=== PATIENT | female | born 1950 | race Caucasian/White ===

== ENCOUNTER 2020-09-21 00:54 | Observation (INO) ==
[2020-09-21] MEDS ORDERED: Isovue-370 500 ML BOTTLE IVP ONE (01:05)
[2020-09-21] MEDS ORDERED: 0.9 % Sodium Chloride 500 ML IVC ONE (01:05)
[2020-09-21] MEDS ORDERED: *HR* FentaNYL (PF) 100 MCG/2 ML VIAL IVP ONE ×2 (01:08→02:36)
[2020-09-21 01:33] LABS: Basophils % 0.4 %; Eosinophils # 0.3 K/mcL (0.0-0.6); Eosinophils % 2.6 %; Hematocrit 34.3 % (35.3-44.9); Hemoglobin 10.9 g/dL (11.5-15.4); Immature Granulocytes % 0.3 % (0-4); Lymphocytes # 1.9 K/mcL (0.6-4.6); Lymphocytes % 19.6 %; Mean Corpuscular HGB Conc 31.8 g/dL (31.6-35.5); Mean Corpuscular Hemoglobin 30.4 pg (28.0-33.3); Mean Corpuscular Volume 95.8 fL (83.0-100.0); Mean Platelet Volume 9.1 fL (9.4-12.4); Monocytes # 0.8 K/mcL (0.0-1.3); Monocytes % 8.2 %; Neutrophils # 6.8 K/mcL (1.6-8.9); Platelet Count 245 K/mcL (140-400); Red Blood Count 3.58 M/mcL (3.82-4.97); Red Cell Distribution Width 13.2 % (11.5-14.5); Segmented Neutrophils % 68.9 %; White Blood Count 9.8 K/mcL (4.3-11.1)
[2020-09-21 01:45] LABS: BUN/Creatinine Ratio 13 (6-26); Blood Urea Nitrogen 12 mg/dL (8-23); Calcium 9.2 mg/dL (8.6-10.3); Carbon Dioxide 28 mEq/L (23-29); Chloride 100 mEq/L (98-107); Glucose 112 mg/dL (70-105); Osmolality,Calculated 283 (280-300); Potassium 3.9 mEq/L (3.5-5.1); Sodium 136 mEq/L (136-145); eGFR For African Americans > 60 (> 60); eGFR For Non-African Americans > 60 (> 60)
[2020-09-21 01:46] LABS: Troponin I < 0.03 ng/mL (< 0.04)
[2020-09-21 02:07] LABS: INR 0.9; Prothrombin Time 10.5 Seconds (9.4-12.1)
[2020-09-21 02:10] LABS: Activated Partial Thrombo Time 30.3 Seconds (26.0-36.0)
[2020-09-21] MEDS ORDERED: Furosemide 40 MG/4 ML VIAL IVP ONE (02:22)
[2020-09-21 04:17] LABS: Adenovirus Not Detected (Not Detect); Bordetella Pertussis Not Detected (Not Detect); Chlamydophila pneumoniae Not Detected (Not Detect); Coronavirus 229E Not Detected (Not Detect); Coronavirus HKU1 Not Detected (Not Detect); Coronavirus NL63 Not Detected (Not Detect); Coronavirus OC43 Not Detected (Not Detect); Human Metapneumovirus Not Detected (Not Detect); Human Rhinovirus/Enterovirus Not Detected (Not Detect); Influenza A Subtype 2009 H1 Not Detected (Not Detect); Influenza B Not Detected (Not Detect); Mycoplasma pneumoniae Not Detected (Not Detect); Parainfluenza Virus 1 Not Detected (Not Detect); Parainfluenza Virus 2 Not Detected (Not Detect); Parainfluenza Virus 3 Not Detected (Not Detect); Parainfluenza Virus 4 Not Detected (Not Detect); Respiratory Syncytial Virus Not Detected (Not Detect); SARS-CoV-2 Not Detected (Not Detect)
[2020-09-21] MEDS ORDERED: Morphine Sulfate Immed Rel 15 MG TABLET PO ONE (04:44)
[2020-09-21] MEDS ORDERED: Naloxone 0.4 MG/ML INJ IVP PRN (05:57)
[2020-09-21] MEDS ORDERED: *HR* Dextrose 50 % in Water (Vial) 50 ML VIAL IVP PRN (06:25)
[2020-09-21] MEDS ORDERED: Morphine Sulfate 2 MG/ML SYRINGE IVP PRN ×2 (06:25→12:43)
[2020-09-21] MEDS ORDERED: D5% in Water 1,000 ML IVC PRN (06:25)
[2020-09-21] MEDS ORDERED: Dextrose Gel 15 GM/37.5 ML TUBE PO PRN ×2 (06:25)
[2020-09-21] MEDS: lisinopriL 20 MG TABLET PO SCH (09:16)
[2020-09-21] MEDS ORDERED: Insulin LISPRO 300 UNITS/3 ML VIAL SQ SCH (12:00)
[2020-09-21] MEDS ORDERED: *HR* OxyCODONE Immed Rel 5 MG TABLET PO PRN (12:42)
[2020-09-21] MEDS ORDERED: *HR* HYDROcodone/Acet 5/325 mg TABLET PO PRN (12:42)
[2020-09-21] MEDS ORDERED: Acetaminophen 325 MG TABLET PO PRN (12:42)
[2020-09-21] MEDS: amLODIPine 5 MG TABLET PO SCH (15:24)
[2020-09-21] MEDS: Metoprolol XL (24 HR) Succ 50 MG TAB.ER.24H PO SCH (17:36)
[2020-09-21] MEDS: ARIPiprazole 5 MG TABLET PO SCH (17:36)
[2020-09-21] MEDS: Insulin LISPRO 300 UNITS/3 ML VIAL SQ SCH ×2 (17:36→20:40)
[2020-09-21] MEDS: hydrALAZINE 25 MG TABLET PO SCH (20:47)
[2020-09-21] MEDS: Gabapentin 300 MG CAPSULE PO SCH (20:47)
[2020-09-22 02:16] LABS: Basophils # 0.1 K/mcL (0.0-0.2); Basophils % 0.5 %; Eosinophils # 0.4 K/mcL (0.0-0.6); Hematocrit 34.8 % (35.3-44.9); Hemoglobin 10.7 g/dL (11.5-15.4); Immature Granulocytes % 0.2 % (0-4); Lymphocytes # 2.9 K/mcL (0.6-4.6); Lymphocytes % 30.5 %; Mean Corpuscular HGB Conc 30.7 g/dL (31.6-35.5); Mean Corpuscular Hemoglobin 30.1 pg (28.0-33.3); Mean Platelet Volume 9.1 fL (9.4-12.4); Monocytes % 10.8 %; Neutrophils # 5.1 K/mcL (1.6-8.9); Platelet Count 250 K/mcL (140-400); Red Blood Count 3.55 M/mcL (3.82-4.97); Red Cell Distribution Width 13.2 % (11.5-14.5); White Blood Count 9.4 K/mcL (4.3-11.1)
[2020-09-22 02:33] LABS: BUN/Creatinine Ratio 20 (6-26); Blood Urea Nitrogen 19 mg/dL (8-23); Calcium 9.2 mg/dL (8.6-10.3); Carbon Dioxide 29 mEq/L (23-29); Chloride 100 mEq/L (98-107); Glucose 136 mg/dL (70-105); Osmolality,Calculated 284 (280-300); Potassium 4.2 mEq/L (3.5-5.1); Sodium 135 mEq/L (136-145); eGFR For African Americans > 60 (> 60); eGFR For Non-African Americans 60 (> 60)
[2020-09-22 07:09] VITALS: BP 170/84
[2020-09-22] MEDS: Gabapentin 300 MG CAPSULE PO SCH (07:33)
[2020-09-22] MEDS: Metoprolol XL (24 HR) Succ 50 MG TAB.ER.24H PO SCH (07:33)
[2020-09-22] MEDS: ARIPiprazole 5 MG TABLET PO SCH (07:33)
[2020-09-22] MEDS: amLODIPine 5 MG TABLET PO SCH (07:33)
[2020-09-22] MEDS: Insulin LISPRO 300 UNITS/3 ML VIAL SQ SCH (07:34)
[2020-09-22] MEDS: hydrALAZINE 25 MG TABLET PO SCH (07:34)
[2020-09-22] MEDS: lisinopriL 20 MG TABLET PO SCH (07:34)
== END 2020-09-22 11:00 | disposition home or self-care (01) ==
LOC: EMEROOARM 00:54 → 2ANU 00:54 → SUATTDRO 05:03 → 2ANU 05:38
PROVIDERS: ADMIT Family Medicine; ATTEND Internal Medicine

== ENCOUNTER 2020-10-25 10:12 | Inpatient (IN) ==
[~2020-10-25 10:12] MED LIST: Acetaminophen IV 1,000 MG/100 ML BAG IVPB ONE; Dexamethasone 4 MG/ML VIAL IVP ONE; Famotidine 20 MG/2 ML VIAL IVP ONE; Pregabalin 50 MG CAPSULE PO ONE; Ringers Solution, Lactated 1,000 ML IVC ONE
[2020-10-25] MEDS ORDERED: Clindamycin 900 MG/50 ML 900 MG/50 ML IV.SOLN IVPB ONE (10:31)
[2020-10-25] MEDS ORDERED: Ringers Solution, Lactated 1,000 ML IVC SCH (10:45)
[2020-10-25] MEDS ORDERED: *HR* HYDROmorphone PF 0.5 MG/0.5 ML SYRINGE IVP PRN (11:56)
[2020-10-25] MEDS ORDERED: Naloxone 0.4 MG/ML INJ IVP PRN ×2 (11:56→17:22)
[2020-10-25] MEDS ORDERED: Ipratropium Neb 0.5 MG NEBULIZER IH PRN (11:56)
[2020-10-25] MEDS ORDERED: Ondansetron 4 MG/2 ML VIAL IVP PRN ×2 (11:56→17:22)
[2020-10-25] MEDS ORDERED: *HR* Metoprolol 5 MG/5 ML VIAL IVP PRN (11:56)
[2020-10-25] MEDS ORDERED: Albuterol 2.5 MG/3 ML NEBULIZER IH PRN (11:56)
[2020-10-25] MEDS ORDERED: Nitroglycerin 0.4 MG TAB.SUBL SL PRN (11:56)
[2020-10-25] MEDS ORDERED: *HR* FentaNYL (PF) 100 MCG/2 ML VIAL IVP PRN (11:56)
[2020-10-25] MEDS ORDERED: *HR* Propofol 200 MG/20 ML VIAL IVP ONE (12:03)
[2020-10-25] MEDS ORDERED: Ondansetron 4 MG/2 ML VIAL ONE (12:03)
[2020-10-25] MEDS ORDERED: Lidocaine -MPF 2% 2 ML VIAL ONE (12:03)
[2020-10-25] MEDS ORDERED: *HR* Rocuronium Bromide 50 MG/5 ML VIAL ONE ×2 (12:03→14:02)
[2020-10-25] MEDS ORDERED: Lidocaine HCL 4 ML Topical Solution (Laryng-O-Jet Kit Sterile Pak) TP ONE (12:03)
[2020-10-25] MEDS ORDERED: *HR* FentaNYL (PF) 100 MCG/2 ML VIAL ONE (12:03)
[2020-10-25] MEDS ORDERED: *HR* Midazolam HCl 2 MG/2 ML VIAL ONE (12:04)
[2020-10-25] MEDS ORDERED: Dexamethasone 4 MG/ML VIAL ONE ×2 (13:31→14:54)
[2020-10-25] MEDS ORDERED: EPHEDrine 50 MG/ML VIAL ONE (14:17)
[2020-10-25] MEDS ORDERED: *HR* Labetalol 20 MG/4 ML SYRINGE IVP ONE (14:59)
[2020-10-25] MEDS ORDERED: Ipratropium/Albuterol Neb 3 ML ONE (15:39)
[2020-10-25] MEDS ORDERED: cloNIDine HCL 0.1 MG TABLET PO ONE (15:46)
[2020-10-25] MEDS ORDERED: D5% in Water 1,000 ML IVC PRN (17:22)
[2020-10-25] MEDS ORDERED: Dextrose Gel 15 GM/37.5 ML TUBE PO PRN ×2 (17:22)
[2020-10-25] MEDS ORDERED: *HR* Dextrose 50 % in Water (Vial) 50 ML VIAL IVP PRN (17:22)
[2020-10-25] MEDS: Ipratropium/Albuterol Neb 3 ML IH SCH ×2 (17:30→20:34)
[2020-10-25] MEDS: 0.9 % Sodium Chloride 1,000 ML IVC SCH (17:52)
[2020-10-25] MEDS: Ketorolac 15 MG/ML VIAL IVP SCH (17:53)
[2020-10-25] MEDS ORDERED: Insulin LISPRO 300 UNITS/3 ML VIAL SUBQ SCH ×2 (18:00→21:00)
[2020-10-25] MEDS: Sennosides/Docusate Sodium TABLET PO SCH (20:21)
[2020-10-25] MEDS: *HR* Heparin 5,000 UNIT/ML VIAL SQ SCH (20:21)
[2020-10-25] MEDS: Gabapentin 300 MG CAPSULE PO SCH (20:22)
[2020-10-25] MEDS: hydrALAZINE 25 MG TABLET PO SCH (20:22)
[2020-10-25] MEDS: Famotidine 20 MG TABLET PO SCH (20:26)
[2020-10-26] MEDS: Ipratropium/Albuterol Neb 3 ML IH SCH ×7 (00:09→23:32)
[2020-10-26] MEDS: Ketorolac 15 MG/ML VIAL IVP SCH ×4 (00:52→17:40)
[2020-10-26 04:47] LABS: Hematocrit 33.9 % (35.3-44.9); Hemoglobin 10.6 g/dL (11.5-15.4); Mean Corpuscular HGB Conc 31.3 g/dL (31.6-35.5); Mean Corpuscular Hemoglobin 29.9 pg (28.0-33.3); Mean Corpuscular Volume 95.5 fL (83.0-100.0); Mean Platelet Volume 9.6 fL (9.4-12.4); Platelet Count 242 K/mcL (140-400); Red Blood Count 3.55 M/mcL (3.82-4.97); Red Cell Distribution Width 13.5 % (11.5-14.5); White Blood Count 9.1 K/mcL (4.3-11.1)
[2020-10-26 05:05] LABS: Calcium 8.8 mg/dL (8.6-10.3); Magnesium 1.2 mg/dL (1.6-2.6); Potassium 4.2 mEq/L (3.5-5.1)
[2020-10-26] MEDS: *HR* Heparin 5,000 UNIT/ML VIAL SQ SCH ×3 (05:55→20:23)
[2020-10-26] MEDS: 0.9 % Sodium Chloride 1,000 ML IVC SCH (06:54)
[2020-10-26] MEDS: *HR* HYDROcodone/Acet 5/325 mg TABLET PO PRN ×3 (06:57→22:27)
[2020-10-26] MEDS ORDERED: Insulin LISPRO 300 UNITS/3 ML VIAL SUBQ SCH (07:30)
[2020-10-26] MEDS: lisinopriL 20 MG TABLET PO SCH (08:07)
[2020-10-26] MEDS: Metoprolol XL (24 HR) Succ 50 MG TAB.ER.24H PO SCH (08:07)
[2020-10-26] MEDS: ARIPiprazole 5 MG TABLET PO SCH (08:07)
[2020-10-26] MEDS: Sennosides/Docusate Sodium TABLET PO SCH ×2 (08:07→20:23)
[2020-10-26] MEDS: Famotidine 20 MG TABLET PO SCH ×2 (08:07→15:42)
[2020-10-26] MEDS: Gabapentin 300 MG CAPSULE PO SCH ×3 (08:08→20:23)
[2020-10-26] MEDS: hydrALAZINE 25 MG TABLET PO SCH ×2 (08:08→20:24)
[2020-10-26] MEDS: *HR* Pioglitazone 30 MG TABLET PO SCH (08:08)
[2020-10-26] MEDS ORDERED: Iron Sucrose Complex 400 MG in 0.9 % Sodium Chloride 250 ML IVPB ONE (09:54)
[2020-10-26] MEDS: Insulin LISPRO 300 UNITS/3 ML VIAL SUBQ SCH ×3 (12:01→20:11)
[2020-10-26] MEDS: *HR* Metformin 500 MG TABLET PO SCH (17:40)
[2020-10-27] MEDS: Ketorolac 15 MG/ML VIAL IVP SCH ×4 (00:21→18:07)
[2020-10-27] MEDS: Ipratropium/Albuterol Neb 3 ML IH SCH ×6 (03:40→23:28)
[2020-10-27] MEDS: *HR* Heparin 5,000 UNIT/ML VIAL SQ SCH ×3 (05:45→21:10)
[2020-10-27] MEDS: Gabapentin 300 MG CAPSULE PO SCH ×3 (08:21→21:07)
[2020-10-27] MEDS: ARIPiprazole 5 MG TABLET PO SCH (08:21)
[2020-10-27] MEDS: *HR* Pioglitazone 30 MG TABLET PO SCH (08:21)
[2020-10-27] MEDS: Metoprolol XL (24 HR) Succ 50 MG TAB.ER.24H PO SCH (08:21)
[2020-10-27] MEDS: lisinopriL 20 MG TABLET PO SCH (08:22)
[2020-10-27] MEDS: Insulin LISPRO 300 UNITS/3 ML VIAL SUBQ SCH ×4 (08:22→21:03)
[2020-10-27] MEDS: Sennosides/Docusate Sodium TABLET PO SCH ×2 (08:22→21:07)
[2020-10-27] MEDS: Famotidine 20 MG TABLET PO SCH ×2 (08:22→16:48)
[2020-10-27] MEDS: hydrALAZINE 25 MG TABLET PO SCH ×2 (08:22→21:07)
[2020-10-27] MEDS: *HR* Metformin 500 MG TABLET PO SCH ×2 (08:22→16:48)
[2020-10-27] MEDS: *HR* HYDROcodone/Acet 5/325 mg TABLET PO PRN (11:37)
[2020-10-28] MEDS: Ketorolac 15 MG/ML VIAL IVP SCH ×4 (00:21→17:07)
[2020-10-28 03:30] LABS: Hematocrit 28.1 % (35.3-44.9); Mean Corpuscular Hemoglobin 29.5 pg (28.0-33.3); Mean Corpuscular Volume 95.3 fL (83.0-100.0); Mean Platelet Volume 9.6 fL (9.4-12.4); Platelet Count 210 K/mcL (140-400); Red Blood Count 2.95 M/mcL (3.82-4.97); Red Cell Distribution Width 14.1 % (11.5-14.5); White Blood Count 8.4 K/mcL (4.3-11.1)
[2020-10-28 03:31] LABS: Hemoglobin 8.7 g/dL (11.5-15.4)
[2020-10-28 03:51] LABS: BUN/Creatinine Ratio 29 (6-26); Blood Urea Nitrogen 30 mg/dL (8-23); Calcium 8.4 mg/dL (8.6-10.3); Carbon Dioxide 26 mEq/L (23-29); Chloride 101 mEq/L (98-107); Glucose 137 mg/dL (70-105); Magnesium 1.9 mg/dL (1.6-2.6); Osmolality,Calculated 282 (280-300); Potassium 4.8 mEq/L (3.5-5.1); Sodium 132 mEq/L (136-145); eGFR For African Americans > 60 (> 60); eGFR For Non-African Americans 52 (> 60)
[2020-10-28] MEDS: Ipratropium/Albuterol Neb 3 ML IH SCH ×6 (04:21→23:49)
[2020-10-28] MEDS: *HR* HYDROcodone/Acet 5/325 mg TABLET PO PRN ×3 (04:38→14:50)
[2020-10-28] MEDS: *HR* Heparin 5,000 UNIT/ML VIAL SQ SCH ×3 (06:33→20:46)
[2020-10-28] MEDS: Insulin LISPRO 300 UNITS/3 ML VIAL SUBQ SCH ×4 (07:33→21:01)
[2020-10-28] MEDS: lisinopriL 20 MG TABLET PO SCH (08:20)
[2020-10-28] MEDS: Gabapentin 300 MG CAPSULE PO SCH ×3 (08:20→20:46)
[2020-10-28] MEDS: Famotidine 20 MG TABLET PO SCH ×2 (08:20→17:07)
[2020-10-28] MEDS: *HR* Pioglitazone 30 MG TABLET PO SCH (08:20)
[2020-10-28] MEDS: Sennosides/Docusate Sodium TABLET PO SCH ×2 (08:20→20:46)
[2020-10-28] MEDS: *HR* Metformin 500 MG TABLET PO SCH ×2 (08:21→19:15)
[2020-10-28] MEDS: Metoprolol XL (24 HR) Succ 50 MG TAB.ER.24H PO SCH (08:21)
[2020-10-28] MEDS: ARIPiprazole 5 MG TABLET PO SCH (08:21)
[2020-10-28] MEDS: hydrALAZINE 25 MG TABLET PO SCH ×2 (08:23→20:46)
[2020-10-29] MEDS: Ketorolac 15 MG/ML VIAL IVP SCH ×2 (00:50→06:24)
[2020-10-29] MEDS: Ipratropium/Albuterol Neb 3 ML IH SCH ×6 (03:59→23:44)
[2020-10-29] MEDS: *HR* Heparin 5,000 UNIT/ML VIAL SQ SCH ×3 (06:23→20:00)
[2020-10-29] MEDS: Insulin LISPRO 300 UNITS/3 ML VIAL SUBQ SCH ×4 (07:38→19:59)
[2020-10-29] MEDS: Famotidine 20 MG TABLET PO SCH ×2 (08:06→17:36)
[2020-10-29] MEDS: lisinopriL 20 MG TABLET PO SCH (08:06)
[2020-10-29] MEDS: Gabapentin 300 MG CAPSULE PO SCH ×3 (08:06→20:00)
[2020-10-29] MEDS: ARIPiprazole 5 MG TABLET PO SCH (08:06)
[2020-10-29] MEDS: Metoprolol XL (24 HR) Succ 50 MG TAB.ER.24H PO SCH (08:06)
[2020-10-29] MEDS: *HR* Metformin 500 MG TABLET PO SCH ×2 (08:06→17:36)
[2020-10-29] MEDS: Sennosides/Docusate Sodium TABLET PO SCH ×2 (08:06→20:00)
[2020-10-29] MEDS: hydrALAZINE 25 MG TABLET PO SCH ×2 (08:06→20:01)
[2020-10-29] MEDS: *HR* Pioglitazone 30 MG TABLET PO SCH (08:06)
[2020-10-29] MEDS ORDERED: Furosemide 20 MG TABLET PO PRN (11:07)
[2020-10-29] MEDS: *HR* HYDROcodone/Acet 5/325 mg TABLET PO PRN (17:42)
[2020-10-30] MEDS: Ipratropium/Albuterol Neb 3 ML IH SCH ×3 (03:53→10:39)
[2020-10-30] MEDS: *HR* Heparin 5,000 UNIT/ML VIAL SQ SCH (05:36)
[2020-10-30 07:10] VITALS: BP 160/87
[2020-10-30] MEDS: Gabapentin 300 MG CAPSULE PO SCH (08:32)
[2020-10-30] MEDS: hydrALAZINE 25 MG TABLET PO SCH (08:32)
[2020-10-30] MEDS: Sennosides/Docusate Sodium TABLET PO SCH (08:32)
[2020-10-30] MEDS: Metoprolol XL (24 HR) Succ 50 MG TAB.ER.24H PO SCH (08:33)
[2020-10-30] MEDS: Famotidine 20 MG TABLET PO SCH (08:33)
[2020-10-30] MEDS: ARIPiprazole 5 MG TABLET PO SCH (08:33)
[2020-10-30] MEDS: *HR* Pioglitazone 30 MG TABLET PO SCH (08:33)
[2020-10-30] MEDS: lisinopriL 20 MG TABLET PO SCH (08:33)
[2020-10-30] MEDS: *HR* Metformin 500 MG TABLET PO SCH (08:33)
[2020-10-30] MEDS: Insulin LISPRO 300 UNITS/3 ML VIAL SUBQ SCH (08:35)
[2020-10-30] MEDS ORDERED: Budesonide/Formoterol 160/4.5 1 PUFF INH IH SCH (11:15)
== END 2020-10-30 12:52 | disposition home or self-care (01) | DRG 163 ==
LOC: SAMDAY 10:12 → 2NNU 16:44
PROVIDERS: ADMIT Thoracic Surgery (Cardiothoracic Vascular Surgery); ATTEND Thoracic Surgery (Cardiothoracic Vascular Surgery)

== ENCOUNTER 2022-07-09 19:55 | Inpatient (IN) ==
[2022-07-09 20:34] LABS: Basophils # 0.1 K/mcL (0.0-0.2); Basophils % 0.8 %; Eosinophils # 0.5 K/mcL (0.0-0.6); Eosinophils % 4.2 %; Hematocrit 34.5 % (35.3-44.9); Hemoglobin 11.5 g/dL (11.5-15.4); Immature Granulocytes % 0.8 % (0-4); Lymphocytes # 1.8 K/mcL (0.6-4.6); Lymphocytes % 14.6 %; Mean Corpuscular HGB Conc 33.3 g/dL (31.6-35.5); Mean Corpuscular Hemoglobin 31.2 pg (28.0-33.3); Mean Corpuscular Volume 93.5 fL (83.0-100.0); Monocytes # 1.3 K/mcL (0.0-1.3); Monocytes % 10.8 %; Neutrophils # 8.5 K/mcL (1.6-8.9); Platelet Count 231 K/mcL (140-400); Red Blood Count 3.69 M/mcL (3.82-4.97); Red Cell Distribution Width 13.5 % (11.5-14.5); Segmented Neutrophils % 68.8 %; White Blood Count 12.3 K/mcL (4.3-11.1)
[2022-07-09 20:54] LABS: BUN/Creatinine Ratio 18 (6-26); Blood Urea Nitrogen 23 mg/dL (8-23); Calcium 9.6 mg/dL (8.6-10.3); Carbon Dioxide 27 mEq/L (23-29); Chloride 92 mEq/L (98-107); Glucose 201 mg/dL (70-105); Magnesium 1.5 mg/dL (1.6-2.6); Osmolality,Calculated 275 (280-300); Sodium 128 mEq/L (136-145); Troponin I < 0.03 ng/mL (< 0.04)
[2022-07-09] MEDS ORDERED: Albuterol Neb 7.5 MG, Ipratropium Neb 0.5 MG, Sodium Chloride for inhalation 9 ML IH ONE (21:15)
[2022-07-09] MEDS ORDERED: predniSONE 20 MG TABLET PO ONE (21:15)
[2022-07-09] MEDS ORDERED: cefTRIAXone 1,000 MG in Water for inj. (sterile) 10 ML IVP ONE (21:16)
[2022-07-09] MEDS ORDERED: Azithromycin 500 MG in 0.9 % Sodium Chloride 250 ML IVPB ONE (21:38)
[2022-07-09] MEDS ORDERED: Ondansetron ODT 4 MG TAB.RAPDIS SL PRN (22:01)
[2022-07-09] MEDS ORDERED: Melatonin 3 MG TABLET PO PRN (22:01)
[2022-07-09] MEDS ORDERED: Naloxone 0.4 MG/ML INJ IVP PRN (22:01)
[2022-07-09] MEDS ORDERED: Dextrose Gel 15 GM/37.5 ML TUBE PO PRN ×2 (22:32)
[2022-07-09] MEDS ORDERED: *HR* Dextrose 50 % in Water (Syg) 50 ML SYRINGE IVP PRN (22:32)
[2022-07-09] MEDS ORDERED: D5% in Water 1,000 ML IVC PRN (22:32)
[2022-07-09 22:41] LABS: Influenza A PCR Negative (Negative); Influenza B PCR Negative (Negative); Resp. Syncytial Virus PCR Negative (Negative)
[2022-07-09 23:00] LABS: SARS-CoV-2 by PCR (In House) Negative (Negative)
[2022-07-09] MEDS: hydrALAZINE 25 MG TABLET PO SCH (23:27)
[2022-07-09] MEDS ORDERED: *HR* Labetalol 20 MG/4 ML SYRINGE IVP ONE (23:28)
[2022-07-09] MEDS: Gabapentin 300 MG CAPSULE PO SCH (23:45)
[2022-07-10 00:37] LABS: Bilirubin,Urine Negative (Negative); Blood,Urine Trace (Negative); Clarity,Urine Clear (Clear); Color,Urine Colorless (Yellow); Glucose,Urine (UA) 70 mg/dL (Normal); Ketones,Urine Negative (Negative); Leukocyte Esterase,Urine Negative (Negative); Nitrite,Urine Negative (Negative); Protein,Urine 70 mg/dL (Neg-Trace); RBC,Urine 0-3 per hpf (0-3); Specific Gravity,Urine 1.008 (1.010-1.025); Squamous Epithelial Cell,Urine Few per hpf (None-Few); Urobilinogen,Urine Normal (Normal); WBC,Urine 0-3 per hpf (0-3)
[2022-07-10 00:43] LABS: Sodium, Urine 80.7 mEq/L
[2022-07-10] MEDS: Furosemide 20 MG/2 ML VIAL IVP SCH ×3 (00:55→17:24)
[2022-07-10 03:56] LABS: Basophils % 0.3 %; Eosinophils # 0.2 K/mcL (0.0-0.6); Eosinophils % 1.9 %; Hematocrit 34.4 % (35.3-44.9); Immature Granulocytes % 0.5 % (0-4); Lymphocytes # 0.7 K/mcL (0.6-4.6); Lymphocytes % 5.8 %; Mean Corpuscular Hemoglobin 29.7 pg (28.0-33.3); Mean Platelet Volume 9.5 fL (9.4-12.4); Monocytes # 0.6 K/mcL (0.0-1.3); Monocytes % 4.9 %; Neutrophils # 10.4 K/mcL (1.6-8.9); Platelet Count 233 K/mcL (140-400); Red Cell Distribution Width 13.3 % (11.5-14.5); Segmented Neutrophils % 86.6 %
[2022-07-10] MEDS ORDERED: Furosemide 20 MG/2 ML VIAL IVP SCH (04:00)
[2022-07-10 04:16] LABS: Albumin 4.2 g/dL (3.5-5.7); Albumin/Globulin Ratio 1.4 (1.1-2.2); Bilirubin,Total 0.6 mg/dL (0.3-1.0); Calcium 9.7 mg/dL (8.6-10.3); Potassium 4.2 mEq/L (3.5-5.1); Total Protein 7.2 g/dL (6.4-8.9)
[2022-07-10] MEDS: Ipratropium/Albuterol Neb 3 ML IH SCH ×6 (04:17→22:57)
[2022-07-10] MEDS: MethylPREDNISolone 40 MG/ML VIAL IVP SCH ×3 (05:29→20:15)
[2022-07-10] MEDS: hydrALAZINE 25 MG TABLET PO SCH ×3 (05:29→22:46)
[2022-07-10] MEDS: *HR* Heparin 5,000 UNIT/ML VIAL SQ SCH ×3 (05:29→20:31)
[2022-07-10] MEDS: lisinopriL 20 MG TABLET PO SCH (07:52)
[2022-07-10] MEDS: Insulin LISPRO 300 UNITS/3 ML VIAL SUBQ SCH ×4 (07:52→20:16)
[2022-07-10] MEDS: Metoprolol XL (24 HR) Succ 50 MG TAB.ER.24H PO SCH (07:52)
[2022-07-10] MEDS: Gabapentin 300 MG CAPSULE PO SCH ×2 (07:52→20:15)
[2022-07-10] MEDS: *HR* HYDROcodone/Acet 5/325 mg TABLET PO PRN ×2 (10:54→20:15)
[2022-07-10] MEDS: Insulin DETEMIR 100 UNIT/ML X5UNITS SUBQ SCH (20:15)
[2022-07-10] MEDS: Budesonide/Formoterol 80/4.5 1 PUFF INH IH SCH (20:37)
[2022-07-10] MEDS ORDERED: Insulin LISPRO 300 UNITS/3 ML VIAL SUBQ SCH (21:00)
[2022-07-11 01:51] LABS: Basophils % 0.1 %; Eosinophils # 0.2 K/mcL (0.0-0.6); Eosinophils % 1.5 %; Hematocrit 29.8 % (35.3-44.9); Hemoglobin 9.8 g/dL (11.5-15.4); Immature Granulocytes % 1.1 % (0-4); Lymphocytes # 0.9 K/mcL (0.6-4.6); Lymphocytes % 8.6 %; Mean Corpuscular HGB Conc 32.9 g/dL (31.6-35.5); Mean Corpuscular Hemoglobin 30.5 pg (28.0-33.3); Mean Corpuscular Volume 92.8 fL (83.0-100.0); Mean Platelet Volume 9.6 fL (9.4-12.4); Neutrophils # 8.2 K/mcL (1.6-8.9); Platelet Count 251 K/mcL (140-400); Red Blood Count 3.21 M/mcL (3.82-4.97); Red Cell Distribution Width 13.3 % (11.5-14.5); Segmented Neutrophils % 78.7 %; White Blood Count 10.4 K/mcL (4.3-11.1)
[2022-07-11 02:08] LABS: Calcium 9.6 mg/dL (8.6-10.3); Magnesium 1.6 mg/dL (1.6-2.6); Potassium 4.3 mEq/L (3.5-5.1)
[2022-07-11] MEDS: Ipratropium/Albuterol Neb 3 ML IH SCH ×6 (04:31→22:56)
[2022-07-11] MEDS: hydrALAZINE 25 MG TABLET PO SCH ×3 (06:04→21:52)
[2022-07-11] MEDS: MethylPREDNISolone 40 MG/ML VIAL IVP SCH ×3 (06:04→21:51)
[2022-07-11] MEDS: *HR* Heparin 5,000 UNIT/ML VIAL SQ SCH ×3 (06:04→21:09)
[2022-07-11] MEDS: *HR* HYDROcodone/Acet 5/325 mg TABLET PO PRN ×3 (06:08→21:52)
[2022-07-11] MEDS: Budesonide/Formoterol 80/4.5 1 PUFF INH IH SCH ×2 (07:34→19:43)
[2022-07-11] MEDS: Cholecalciferol (D-3) 1,000 UNIT (25MCG) TABLET PO SCH (09:19)
[2022-07-11] MEDS: Gabapentin 300 MG CAPSULE PO SCH ×2 (09:19→21:09)
[2022-07-11] MEDS: Magnesium Oxide 400 MG TABLET PO SCH ×2 (09:19→21:09)
[2022-07-11] MEDS: Insulin DETEMIR 100 UNIT/ML X5UNITS SUBQ SCH ×2 (09:20→21:10)
[2022-07-11] MEDS: lisinopriL 20 MG TABLET PO SCH (09:20)
[2022-07-11] MEDS: Metoprolol XL (24 HR) Succ 50 MG TAB.ER.24H PO SCH (09:20)
[2022-07-11] MEDS: Insulin LISPRO 300 UNITS/3 ML VIAL SUBQ SCH ×4 (09:21→21:10)
[2022-07-11] MEDS: 0.9 % Sodium Chloride 1,000 ML IVC SCH ×2 (09:22→21:17)
[2022-07-11] MEDS: Cyanocobalamin (B-12) 1,000 MCG TABLET PO SCH (10:03)
[2022-07-11] MEDS: *HR* Labetalol 20 MG/4 ML SYRINGE IVP PRN (23:50)
[2022-07-12 03:29] LABS: Basophils % 0.2 %; Hematocrit 29.9 % (35.3-44.9); Hemoglobin 9.7 g/dL (11.5-15.4); Immature Granulocytes % 1.5 % (0-4); Lymphocytes # 0.7 K/mcL (0.6-4.6); Lymphocytes % 7.1 %; Mean Corpuscular HGB Conc 32.4 g/dL (31.6-35.5); Mean Corpuscular Hemoglobin 30.2 pg (28.0-33.3); Mean Corpuscular Volume 93.1 fL (83.0-100.0); Mean Platelet Volume 8.9 fL (9.4-12.4); Monocytes # 0.4 K/mcL (0.0-1.3); Monocytes % 4.4 %; Neutrophils # 7.9 K/mcL (1.6-8.9); Platelet Count 256 K/mcL (140-400); Red Blood Count 3.21 M/mcL (3.82-4.97); Red Cell Distribution Width 13.2 % (11.5-14.5); Segmented Neutrophils % 86.8 %; White Blood Count 9.1 K/mcL (4.3-11.1)
[2022-07-12] MEDS: Ipratropium/Albuterol Neb 3 ML IH SCH ×6 (03:38→23:17)
[2022-07-12 03:51] LABS: Calcium 9.1 mg/dL (8.6-10.3); Potassium 4.7 mEq/L (3.5-5.1)
[2022-07-12] MEDS: hydrALAZINE 25 MG TABLET PO SCH ×3 (06:12→22:04)
[2022-07-12] MEDS: MethylPREDNISolone 40 MG/ML VIAL IVP SCH ×2 (06:12→13:26)
[2022-07-12] MEDS: *HR* Heparin 5,000 UNIT/ML VIAL SQ SCH ×3 (06:13→22:03)
[2022-07-12] MEDS: 0.9 % Sodium Chloride 1,000 ML IVC SCH ×2 (06:15→17:17)
[2022-07-12] MEDS: Budesonide/Formoterol 80/4.5 1 PUFF INH IH SCH ×2 (07:16→19:18)
[2022-07-12] MEDS: Insulin DETEMIR 100 UNIT/ML X5UNITS SUBQ SCH ×2 (07:54→22:03)
[2022-07-12] MEDS: Cholecalciferol (D-3) 1,000 UNIT (25MCG) TABLET PO SCH (07:54)
[2022-07-12] MEDS: Metoprolol XL (24 HR) Succ 50 MG TAB.ER.24H PO SCH (07:54)
[2022-07-12] MEDS: lisinopriL 20 MG TABLET PO SCH (07:54)
[2022-07-12] MEDS: Gabapentin 300 MG CAPSULE PO SCH ×2 (07:54→19:47)
[2022-07-12] MEDS: Magnesium Oxide 400 MG TABLET PO SCH ×2 (07:55→19:47)
[2022-07-12] MEDS: Insulin LISPRO 300 UNITS/3 ML VIAL SUBQ SCH ×4 (07:55→19:48)
[2022-07-12] MEDS: polyethylene glycoL 3350 17 GM POWD.PACK PO SCH (12:14)
[2022-07-12] MEDS: *HR* HYDROcodone/Acet 5/325 mg TABLET PO PRN ×2 (13:25→22:04)
[2022-07-12] MEDS: *HR* Labetalol 20 MG/4 ML SYRINGE IVP PRN ×2 (15:35→19:46)
[2022-07-12] MEDS ORDERED: *HR* Labetalol 20 MG/4 ML SYRINGE IVP PRN (23:07)
[2022-07-12] MEDS ORDERED: *HR* Labetalol 20 MG/4 ML SYRINGE IVP ONE (23:09)
[2022-07-13 03:32] LABS: Basophils % 0.4 %; Eosinophils % 0.1 %; Hemoglobin 9.3 g/dL (11.5-15.4); Immature Granulocytes % 2.1 % (0-4); Lymphocytes # 1.6 K/mcL (0.6-4.6); Mean Corpuscular HGB Conc 33.2 g/dL (31.6-35.5); Mean Corpuscular Hemoglobin 30.6 pg (28.0-33.3); Mean Corpuscular Volume 92.1 fL (83.0-100.0); Monocytes # 0.9 K/mcL (0.0-1.3); Monocytes % 9.1 %; Neutrophils # 7.3 K/mcL (1.6-8.9); Platelet Count 240 K/mcL (140-400); Red Blood Count 3.04 M/mcL (3.82-4.97); Red Cell Distribution Width 13.2 % (11.5-14.5); Segmented Neutrophils % 72.3 %; White Blood Count 10.1 K/mcL (4.3-11.1)
[2022-07-13 03:53] LABS: Albumin 3.5 g/dL (3.5-5.7); Albumin/Globulin Ratio 1.5 (1.1-2.2); Bilirubin,Total 0.4 mg/dL (0.3-1.0); Calcium 8.8 mg/dL (8.6-10.3); Globulin 2.4 g/dL (2.4-3.5); Magnesium 1.7 mg/dL (1.6-2.6); Potassium 4.7 mEq/L (3.5-5.1); Total Protein 5.9 g/dL (6.4-8.9)
[2022-07-13] MEDS: Ipratropium/Albuterol Neb 3 ML IH SCH ×6 (04:02→23:59)
[2022-07-13] MEDS: *HR* Heparin 5,000 UNIT/ML VIAL SQ SCH ×3 (06:36→20:27)
[2022-07-13] MEDS: hydrALAZINE 25 MG TABLET PO SCH ×4 (07:00→23:43)
[2022-07-13] MEDS: Budesonide/Formoterol 80/4.5 1 PUFF INH IH SCH ×2 (07:23→19:44)
[2022-07-13] MEDS: Insulin LISPRO 300 UNITS/3 ML VIAL SUBQ SCH ×4 (08:28→20:29)
[2022-07-13] MEDS: Cholecalciferol (D-3) 1,000 UNIT (25MCG) TABLET PO SCH (08:29)
[2022-07-13] MEDS: predniSONE 20 MG TABLET PO SCH (08:29)
[2022-07-13] MEDS: Furosemide 20 MG/2 ML VIAL IVP SCH ×2 (08:29→15:17)
[2022-07-13] MEDS: lisinopriL 20 MG TABLET PO SCH (08:30)
[2022-07-13] MEDS: Gabapentin 300 MG CAPSULE PO SCH ×2 (08:30→20:26)
[2022-07-13] MEDS: polyethylene glycoL 3350 17 GM POWD.PACK PO SCH (08:31)
[2022-07-13] MEDS: Magnesium Oxide 400 MG TABLET PO SCH ×2 (08:31→20:27)
[2022-07-13] MEDS: Metoprolol XL (24 HR) Succ 50 MG TAB.ER.24H PO SCH ×2 (08:45→20:27)
[2022-07-13] MEDS: Insulin DETEMIR 100 UNIT/ML X5UNITS SUBQ SCH ×2 (08:45→20:28)
[2022-07-13] MEDS: *HR* HYDROcodone/Acet 5/325 mg TABLET PO PRN ×2 (15:16→23:43)
[2022-07-14] MEDS: Ipratropium/Albuterol Neb 3 ML IH SCH ×3 (04:08→11:36)
[2022-07-14] MEDS: *HR* Heparin 5,000 UNIT/ML VIAL SQ SCH (05:35)
[2022-07-14 07:50] VITALS: PULSE 58
[2022-07-14] MEDS: Budesonide/Formoterol 80/4.5 1 PUFF INH IH SCH (07:57)
[2022-07-14] MEDS: polyethylene glycoL 3350 17 GM POWD.PACK PO SCH (08:25)
[2022-07-14] MEDS: Metoprolol XL (24 HR) Succ 50 MG TAB.ER.24H PO SCH (08:26)
[2022-07-14] MEDS: hydrALAZINE 25 MG TABLET PO SCH (08:26)
[2022-07-14] MEDS: Cholecalciferol (D-3) 1,000 UNIT (25MCG) TABLET PO SCH (08:26)
[2022-07-14] MEDS: predniSONE 20 MG TABLET PO SCH (08:27)
[2022-07-14] MEDS: Gabapentin 300 MG CAPSULE PO SCH (08:27)
[2022-07-14] MEDS: Magnesium Oxide 400 MG TABLET PO SCH (08:27)
[2022-07-14] MEDS: lisinopriL 20 MG TABLET PO SCH (08:27)
[2022-07-14] MEDS: Furosemide 20 MG/2 ML VIAL IVP SCH (08:28)
[2022-07-14] MEDS: Insulin DETEMIR 100 UNIT/ML X5UNITS SUBQ SCH (08:38)
[2022-07-14] MEDS: Insulin LISPRO 300 UNITS/3 ML VIAL SUBQ SCH ×2 (08:39→12:44)
[2022-07-14] MEDS: Cyanocobalamin (B-12) 1,000 MCG TABLET PO SCH (10:38)
[2022-07-14 10:43] LABS: White Blood Count 12.6 K/mcL (4.3-11.1)
[2022-07-14 10:44] LABS: Basophils # 0.1 K/mcL (0.0-0.2); Basophils % 0.6 %; Eosinophils # 0.2 K/mcL (0.0-0.6); Eosinophils % 1.3 %; Hematocrit 32.5 % (35.3-44.9); Hemoglobin 10.8 g/dL (11.5-15.4); Immature Granulocytes % 4.5 % (0-4); Lymphocytes # 2.7 K/mcL (0.6-4.6); Mean Corpuscular HGB Conc 33.2 g/dL (31.6-35.5); Mean Corpuscular Hemoglobin 30.3 pg (28.0-33.3); Mean Corpuscular Volume 91.3 fL (83.0-100.0); Mean Platelet Volume 8.8 fL (9.4-12.4); Monocytes # 1.2 K/mcL (0.0-1.3); Monocytes % 9.2 %; Nucleated Red Blood Cells 0.2 /100 WBC (0); Platelet Count 274 K/mcL (140-400); Red Blood Count 3.56 M/mcL (3.82-4.97); Red Cell Distribution Width 13.1 % (11.5-14.5); Segmented Neutrophils % 63.4 %
[2022-07-14 11:03] LABS: Albumin 3.9 g/dL (3.5-5.7); Albumin/Globulin Ratio 1.3 (1.1-2.2); Bilirubin,Total 0.6 mg/dL (0.3-1.0); Calcium 9.7 mg/dL (8.6-10.3); Globulin 2.9 g/dL (2.4-3.5); Magnesium 1.7 mg/dL (1.6-2.6); Potassium 4.6 mEq/L (3.5-5.1); Total Protein 6.8 g/dL (6.4-8.9)
[2022-07-14 11:40] VITALS: BP 156/64; TEMP 98.3; O2SAT 100
== END 2022-07-14 15:00 | disposition home health service (06) | DRG 193 ==
LOC: 3NENU 19:55 → EMEROOARM 19:55 → SUATTDRO 21:46 → 3NENU 22:45
PROVIDERS: ADMIT Internal Medicine; ATTEND Hospitalist

== ENCOUNTER 2022-08-06 22:52 | Observation (INO) ==
[2022-08-07 00:09] LABS: Basophils % 0.4 %; Eosinophils # 0.1 K/mcL (0.0-0.6); Eosinophils % 1.4 %; Hematocrit 28.3 % (35.3-44.9); Hemoglobin 9.4 g/dL (11.5-15.4); Immature Granulocytes % 0.8 % (0-4); Lymphocytes # 0.7 K/mcL (0.6-4.6); Lymphocytes % 9.7 %; Mean Corpuscular HGB Conc 33.2 g/dL (31.6-35.5); Mean Corpuscular Hemoglobin 30.8 pg (28.0-33.3); Mean Corpuscular Volume 92.8 fL (83.0-100.0); Mean Platelet Volume 9.6 fL (9.4-12.4); Monocytes # 0.9 K/mcL (0.0-1.3); Neutrophils # 5.6 K/mcL (1.6-8.9); Platelet Count 197 K/mcL (140-400); Red Blood Count 3.05 M/mcL (3.82-4.97); Red Cell Distribution Width 14.2 % (11.5-14.5); Segmented Neutrophils % 75.7 %; White Blood Count 7.3 K/mcL (4.3-11.1)
[2022-08-07 00:22] LABS: BUN/Creatinine Ratio 14 (6-26); Blood Urea Nitrogen 15 mg/dL (8-23); Calcium 9.4 mg/dL (8.6-10.3); Carbon Dioxide 26 mEq/L (23-29); Chloride 95 mEq/L (98-107); Glucose 155 mg/dL (70-105); Magnesium 1.4 mg/dL (1.6-2.6); Osmolality,Calculated 270 (280-300); Potassium 4.1 mEq/L (3.5-5.1); Sodium 128 mEq/L (136-145); Troponin I < 0.03 ng/mL (< 0.04)
[2022-08-07 00:59] LABS: Bilirubin,Urine Negative (Negative); Blood,Urine Negative (Negative); Clarity,Urine Clear (Clear); Color,Urine Light-Yellow (Yellow); Glucose,Urine (UA) 70 mg/dL (Normal); Ketones,Urine Negative (Negative); Leukocyte Esterase,Urine Small (Negative); Nitrite,Urine Negative (Negative); PH,Urine 6.5 pH Units (5.0-8.0); Protein,Urine 70 mg/dL (Neg-Trace); Specific Gravity,Urine 1.014 (1.010-1.025); Squamous Epithelial Cell,Urine Few per hpf (None-Few); Urobilinogen,Urine Normal (Normal)
[2022-08-07 01:05] LABS: VBG HCO3 26 mEq/L (21-27); VBG PCO2 47 mmHg (41-51); VBG PH 7.34 pH Units (7.32-7.42); VBG PO2 69 mmHg (25-50)
[2022-08-07] MEDS ORDERED: cefTRIAXone 1,000 MG in Water for inj. (sterile) 10 ML IVP ONE (01:07)
[2022-08-07] MEDS ORDERED: Melatonin 3 MG TABLET PO PRN (01:46)
[2022-08-07] MEDS ORDERED: Acetaminophen 325 MG TABLET PO PRN (01:46)
[2022-08-07] MEDS ORDERED: Naloxone 0.4 MG/ML INJ IVP PRN (01:46)
[2022-08-07] MEDS ORDERED: Ondansetron 4 MG/2 ML VIAL IVP PRN (01:46)
[2022-08-07] MEDS ORDERED: *HR* Dextrose 50 % in Water (Syg) 50 ML SYRINGE IVP PRN (03:14)
[2022-08-07] MEDS ORDERED: D5% in Water 1,000 ML IVC PRN (03:14)
[2022-08-07] MEDS ORDERED: Dextrose Gel 15 GM/37.5 ML TUBE PO PRN ×2 (03:14)
[2022-08-07] MEDS ORDERED: Ipratropium/Albuterol Neb 3 ML IH PRN (03:22)
[2022-08-07] MEDS: *HR* Heparin 5,000 UNIT/ML VIAL SQ SCH ×3 (05:46→21:59)
[2022-08-07 06:01] LABS: Basophils % 0.5 %; Eosinophils # 0.1 K/mcL (0.0-0.6); Eosinophils % 0.9 %; Hematocrit 27.6 % (35.3-44.9); Hemoglobin 9.1 g/dL (11.5-15.4); Immature Granulocytes % 0.3 % (0-4); Lymphocytes % 14.8 %; Mean Corpuscular Hemoglobin 30.8 pg (28.0-33.3); Mean Corpuscular Volume 93.6 fL (83.0-100.0); Mean Platelet Volume 8.9 fL (9.4-12.4); Monocytes # 0.9 K/mcL (0.0-1.3); Monocytes % 13.5 %; Neutrophils # 4.6 K/mcL (1.6-8.9); Platelet Count 179 K/mcL (140-400); Red Blood Count 2.95 M/mcL (3.82-4.97); Red Cell Distribution Width 14.4 % (11.5-14.5); White Blood Count 6.6 K/mcL (4.3-11.1)
[2022-08-07 06:07] LABS: Prothrombin Time 11.6 Seconds (9.4-12.1)
[2022-08-07 06:10] LABS: Activated Partial Thrombo Time 29.8 Seconds (26.0-36.0)
[2022-08-07 06:22] LABS: Albumin 3.8 g/dL (3.5-5.7); Albumin/Globulin Ratio 1.7 (1.1-2.2); Bilirubin,Total 0.6 mg/dL (0.3-1.0); Calcium 9.3 mg/dL (8.6-10.3); Globulin 2.3 g/dL (2.4-3.5); Magnesium 1.9 mg/dL (1.6-2.6); Phosphorous 3.9 mg/dL (2.7-4.5); Potassium 3.8 mEq/L (3.5-5.1); Total Protein 6.1 g/dL (6.4-8.9)
[2022-08-07] MEDS: Insulin LISPRO 300 UNITS/3 ML VIAL SUBQ SCH ×3 (08:42→18:02)
[2022-08-07] MEDS ORDERED: Furosemide 20 MG TABLET PO PRN (12:57)
[2022-08-07] MEDS: Budesonide/Formoterol 80/4.5 1 PUFF INH IH SCH ×2 (15:19→22:16)
[2022-08-07] MEDS: Cyanocobalamin (B-12) 1,000 MCG TABLET PO SCH (15:50)
[2022-08-07] MEDS: hydrALAZINE 25 MG TABLET PO SCH ×2 (15:50→21:59)
[2022-08-07] MEDS: lisinopriL 20 MG TABLET PO SCH (18:02)
[2022-08-07] MEDS: *HR* HYDROcodone/Acet 5/325 mg TABLET PO PRN (18:27)
[2022-08-07] MEDS: Metoprolol XL (24 HR) Succ 50 MG TAB.ER.24H PO SCH (21:59)
[2022-08-07] MEDS: Gabapentin 300 MG CAPSULE PO SCH (22:00)
[2022-08-07] MEDS: Magnesium Oxide 400 MG TABLET PO SCH (22:00)
[2022-08-08] MEDS: hydrALAZINE 25 MG TABLET PO SCH ×3 (06:23→21:01)
[2022-08-08] MEDS: *HR* Heparin 5,000 UNIT/ML VIAL SQ SCH ×3 (06:23→21:00)
[2022-08-08] MEDS: lisinopriL 20 MG TABLET PO SCH ×2 (07:57→17:28)
[2022-08-08] MEDS: Magnesium Oxide 400 MG TABLET PO SCH ×2 (07:57→21:01)
[2022-08-08] MEDS: Metoprolol XL (24 HR) Succ 50 MG TAB.ER.24H PO SCH ×2 (07:57→21:01)
[2022-08-08] MEDS: Gabapentin 300 MG CAPSULE PO SCH ×2 (07:57→21:01)
[2022-08-08] MEDS: Cholecalciferol (D-3) 1,000 UNIT (25MCG) TABLET PO SCH (07:57)
[2022-08-08] MEDS: Insulin LISPRO 300 UNITS/3 ML VIAL SUBQ SCH ×3 (08:08→17:30)
[2022-08-08 08:53] LABS: Basophils # 0.1 K/mcL (0.0-0.2); Basophils % 0.8 %; Eosinophils # 0.1 K/mcL (0.0-0.6); Hematocrit 26.4 % (35.3-44.9); Immature Granulocytes % 1.2 % (0-4); Lymphocytes % 17.1 %; Mean Corpuscular HGB Conc 34.1 g/dL (31.6-35.5); Mean Corpuscular Hemoglobin 31.3 pg (28.0-33.3); Mean Corpuscular Volume 91.7 fL (83.0-100.0); Mean Platelet Volume 8.6 fL (9.4-12.4); Monocytes # 0.8 K/mcL (0.0-1.3); Monocytes % 12.9 %; Platelet Count 184 K/mcL (140-400); Red Blood Count 2.88 M/mcL (3.82-4.97); Red Cell Distribution Width 14.4 % (11.5-14.5)
[2022-08-08 09:13] LABS: Calcium 9.1 mg/dL (8.6-10.3); Potassium 3.9 mEq/L (3.5-5.1)
[2022-08-08] MEDS: Budesonide/Formoterol 80/4.5 1 PUFF INH IH SCH ×2 (09:20→21:17)
[2022-08-08] MEDS: Ipratropium/Albuterol Neb 3 ML IH SCH ×3 (12:33→21:17)
[2022-08-08] MEDS: Cyanocobalamin (B-12) 1,000 MCG TABLET PO SCH (13:12)
[2022-08-08] MEDS: *HR* HYDROcodone/Acet 5/325 mg TABLET PO PRN (13:13)
[2022-08-09] MEDS: Ipratropium/Albuterol Neb 3 ML IH SCH ×4 (03:40→20:59)
[2022-08-09] MEDS: hydrALAZINE 25 MG TABLET PO SCH ×3 (06:06→22:20)
[2022-08-09] MEDS: *HR* Heparin 5,000 UNIT/ML VIAL SQ SCH ×3 (06:06→22:19)
[2022-08-09] MEDS: Magnesium Oxide 400 MG TABLET PO SCH ×2 (08:11→22:20)
[2022-08-09] MEDS: Gabapentin 300 MG CAPSULE PO SCH ×2 (08:12→22:19)
[2022-08-09] MEDS: Cholecalciferol (D-3) 1,000 UNIT (25MCG) TABLET PO SCH (08:12)
[2022-08-09] MEDS: ARIPiprazole 5 MG TABLET PO SCH (08:12)
[2022-08-09] MEDS: lisinopriL 20 MG TABLET PO SCH ×2 (08:12→17:25)
[2022-08-09] MEDS: Metoprolol XL (24 HR) Succ 50 MG TAB.ER.24H PO SCH ×2 (08:12→22:19)
[2022-08-09] MEDS: *HR* HYDROcodone/Acet 5/325 mg TABLET PO PRN (08:15)
[2022-08-09] MEDS: Insulin LISPRO 300 UNITS/3 ML VIAL SUBQ SCH ×3 (08:19→17:25)
[2022-08-09] MEDS: Budesonide/Formoterol 80/4.5 1 PUFF INH IH SCH ×2 (11:02→21:00)
[2022-08-09 17:55] LABS: Basophils % 0.7 %; Eosinophils # 0.3 K/mcL (0.0-0.6); Eosinophils % 4.9 %; Hematocrit 28.3 % (35.3-44.9); Hemoglobin 9.3 g/dL (11.5-15.4); Immature Granulocytes % 0.3 % (0-4); Lymphocytes # 1.8 K/mcL (0.6-4.6); Lymphocytes % 30.7 %; Mean Corpuscular HGB Conc 32.9 g/dL (31.6-35.5); Mean Corpuscular Hemoglobin 30.5 pg (28.0-33.3); Mean Corpuscular Volume 92.8 fL (83.0-100.0); Mean Platelet Volume 8.5 fL (9.4-12.4); Monocytes # 0.8 K/mcL (0.0-1.3); Monocytes % 14.4 %; Neutrophils # 2.8 K/mcL (1.6-8.9); Platelet Count 200 K/mcL (140-400); Red Blood Count 3.05 M/mcL (3.82-4.97); Red Cell Distribution Width 14.3 % (11.5-14.5); White Blood Count 5.8 K/mcL (4.3-11.1)
[2022-08-10] MEDS: Ipratropium/Albuterol Neb 3 ML IH SCH ×4 (04:19→23:17)
[2022-08-10] MEDS: *HR* Heparin 5,000 UNIT/ML VIAL SQ SCH ×2 (05:57→13:59)
[2022-08-10] MEDS: hydrALAZINE 25 MG TABLET PO SCH ×3 (05:57→21:08)
[2022-08-10] MEDS: Budesonide/Formoterol 80/4.5 1 PUFF INH IH SCH ×2 (08:56→23:17)
[2022-08-10] MEDS: Magnesium Oxide 400 MG TABLET PO SCH ×2 (09:15→21:08)
[2022-08-10] MEDS: ARIPiprazole 5 MG TABLET PO SCH (09:15)
[2022-08-10] MEDS: Gabapentin 300 MG CAPSULE PO SCH (09:16)
[2022-08-10] MEDS: Metoprolol XL (24 HR) Succ 50 MG TAB.ER.24H PO SCH ×2 (09:16→21:08)
[2022-08-10] MEDS: Cholecalciferol (D-3) 1,000 UNIT (25MCG) TABLET PO SCH (09:16)
[2022-08-10] MEDS: Insulin LISPRO 300 UNITS/3 ML VIAL SUBQ SCH ×3 (09:19→17:19)
[2022-08-10] MEDS: lisinopriL 20 MG TABLET PO SCH ×2 (09:34→17:19)
[2022-08-10 10:01] LABS: Calcium 9.2 mg/dL (8.6-10.3); Potassium 4.7 mEq/L (3.5-5.1)
[2022-08-10] MEDS: *HR* HYDROcodone/Acet 5/325 mg TABLET PO PRN (15:30)
[2022-08-11] MEDS: Gabapentin 300 MG CAPSULE PO SCH ×3 (00:03→19:30)
[2022-08-11] MEDS: *HR* HYDROcodone/Acet 5/325 mg TABLET PO PRN ×3 (01:02→19:30)
[2022-08-11] MEDS: Ipratropium/Albuterol Neb 3 ML IH SCH ×4 (03:44→22:39)
[2022-08-11] MEDS: *HR* Heparin 5,000 UNIT/ML VIAL SQ SCH ×4 (07:10→21:31)
[2022-08-11] MEDS: hydrALAZINE 25 MG TABLET PO SCH ×3 (07:10→19:29)
[2022-08-11] MEDS: Insulin LISPRO 300 UNITS/3 ML VIAL SUBQ SCH ×3 (07:37→17:23)
[2022-08-11] MEDS: Metoprolol XL (24 HR) Succ 50 MG TAB.ER.24H PO SCH ×2 (07:39→19:29)
[2022-08-11] MEDS: Cholecalciferol (D-3) 1,000 UNIT (25MCG) TABLET PO SCH (07:39)
[2022-08-11] MEDS: Magnesium Oxide 400 MG TABLET PO SCH ×2 (07:39→19:30)
[2022-08-11] MEDS: ARIPiprazole 5 MG TABLET PO SCH (07:39)
[2022-08-11] MEDS: lisinopriL 20 MG TABLET PO SCH ×2 (07:39→17:24)
[2022-08-11] MEDS: Folic Acid 1 MG TABLET PO SCH (07:40)
[2022-08-11] MEDS: Budesonide/Formoterol 80/4.5 1 PUFF INH IH SCH ×2 (11:05→22:41)
[2022-08-11] MEDS: Cyanocobalamin (B-12) 1,000 MCG TABLET PO SCH (12:06)
[2022-08-11 16:50] LABS: Influenza A PCR Negative (Negative); Influenza B PCR Negative (Negative); Resp. Syncytial Virus PCR Negative (Negative)
[2022-08-11 16:53] LABS: SARS-CoV-2 by PCR (In House) Positive (Negative)
[2022-08-12] MEDS: Ipratropium/Albuterol Neb 3 ML IH SCH (04:00)
[2022-08-12] MEDS: *HR* Heparin 5,000 UNIT/ML VIAL SQ SCH ×2 (05:51→13:02)
[2022-08-12] MEDS: hydrALAZINE 25 MG TABLET PO SCH ×2 (05:51→13:04)
[2022-08-12 07:40] VITALS: O2SAT 96
[2022-08-12] MEDS: Gabapentin 300 MG CAPSULE PO SCH (07:58)
[2022-08-12] MEDS: Metoprolol XL (24 HR) Succ 50 MG TAB.ER.24H PO SCH (07:59)
[2022-08-12] MEDS: ARIPiprazole 5 MG TABLET PO SCH (07:59)
[2022-08-12] MEDS: Magnesium Oxide 400 MG TABLET PO SCH (07:59)
[2022-08-12] MEDS: lisinopriL 20 MG TABLET PO SCH (07:59)
[2022-08-12] MEDS: Cholecalciferol (D-3) 1,000 UNIT (25MCG) TABLET PO SCH (07:59)
[2022-08-12] MEDS ORDERED: Ipratropium 1 PUFF INHALER IH SCH (10:00)
[2022-08-12] MEDS: Budesonide/Formoterol 80/4.5 1 PUFF INH IH SCH (10:47)
[2022-08-12 10:54] VITALS: BP 159/84; PULSE 61; TEMP 97.9
[2022-08-12] MEDS ORDERED: *HR* HYDROcodone/Acet 5/325 mg TABLET PO PRN (11:06)
[2022-08-12] MEDS: Folic Acid 1 MG TABLET PO SCH (13:04)
[2022-08-12] MEDS: Cyanocobalamin (B-12) 1,000 MCG TABLET PO SCH (13:04)
== END 2022-08-12 14:36 | disposition home health service (06) ==
LOC: EMEROOARM 22:52 → 4WAOSI 22:52 → SUATTDRO 08-07 01:40 → 4WAOSI 08-07 02:34 → 3ANU 08-10 20:12
PROVIDERS: ADMIT Internal Medicine; ATTEND Hospitalist